=== PATIENT | female | born 1970 | race Two or more races ===

== ENCOUNTER 2019-09-08 16:02 | Emergency (ER) | payer SELFPAY ==
[~2019-09-08] VITALS: Ht 157.5 cm; Wt 92.7 kg
[2019-09-08 16:25] VITALS: Ht 157.5 cm; Wt 92.7 kg
[2019-09-08 17:29] LABS: BASOPHILS 0.1 % (0-2); EOSINOPHILS 0.9 % (0-7); HEMATOCRIT 41.4 % (36.0-48.0); HEMOGLOBIN 13.2 g/dL (12-16); IMMATURE GRANULOCYTES 0.2 % (0-5); LYMPHOCYTES 27.9 % (15-50); MCH 27.2 pg (26.0-34.0); MCHC 31.9 g/dL (31.0-37.0); MCV 85.4 fL (80.0-100.0); MONOCYTES 5.9 % (2-11); PLATELET COUNT 243 10x3/uL (130-400); RBC 4.85 10x6/uL (4.00-5.40); RDW 16.2 % (11.5-14.5); WBC 10.1 10x3/uL (4.8-10.8)
[2019-09-08 17:36] LABS: SPECIFIC GRAVITY 1.015 (1.005-1.020)
[2019-09-08 17:37] LABS: BILIRUBIN NEGATIVE (NEGATIVE); GLUCOSE NEGATIVE (NEGATIVE); KETONE NEGATIVE (NEGATIVE); NITRITE NEGATIVE (NEGATIVE); UROBILINOGEN NORMAL (NORMAL)
[2019-09-08 17:51] LABS: ANION GAP 14.2 mmol/L (8-16); CALCIUM 8.6 mg/dL (8.5-10.1); CARBON DIOXIDE 24.4 mmol/L (21.0-32.0); POTASSIUM - SERUM 3.6 mmol/L (3.5-5.1)
[2019-09-08 17:53] LABS: ALBUMIN 3.4 g/dL (3.4-5.0); BILIRUBIN - TOTAL 0.26 mg/dL (0.2-1.3); PROTEIN - SERUM 8.4 g/dL (6.4-8.2)
[2019-09-08 19:02] VITALS: BP 144/72
== END 2019-09-08 19:03 | disposition home or self-care (01) ==
LOC: D.ER 16:02
PROVIDERS: Family Medicine
DX: N75.0 Cyst of Bartholin's gland (principal)